=== PATIENT | male | born 1985 | race Two or more races ===

== ENCOUNTER 2022-07-24 11:57 | Emergency (ER) | payer MEDICAID ==
[~2022-07-24] VITALS: Ht 180.3 cm; Wt 128.0 kg
[2022-07-24 14:15] VITALS: BP 155/94
== END 2022-07-24 15:05 | disposition left against medical advice (07) ==
LOC: ER 11:58
DX: K08.89 Other specified disorders of teeth and supporting structures (principal); Z53.21 Procedure and treatment not carried out due to patient leaving prior to being seen by health care provider
CPT/HCPCS: 99281